=== PATIENT | male | born 1990 ===

== ENCOUNTER 2024-08-14 17:34 | Emergency (ER) | payer OTHER ==
[~2024-08-14] VITALS: Ht 193 cm; Wt 110.5 kg
[2024-08-14 19:21] VITALS: TEMP 98
[2024-08-14 19:58] LABS: APPEARANCE,URINE CLEAR (CLEAR); BILIRUBIN,URINE NEGATIVE (NEGATIVE); COLOR,URINE LIGHT YELLOW (YELLOW); GLUCOSE, URINE (UA) NEGATIVE (NEGATIVE); KETONES,URINE NEGATIVE (NEGATIVE); LEUKOCYTE ESTERASE ,URINE NEGATIVE (NEGATIVE); NITRATE,URINE NEGATIVE (NEGATIVE); OCCULT BLOOD,URINE NEGATIVE (NEGATIVE); PROTEIN,URINE NEGATIVE (NEGATIVE); SPECIFIC GRAVITIY, URINE 1.014 (1.003-1.030); UROBILINOGEN,URINE <=1.0 mg/dL (<=1.0)
[2024-08-14 20:06] LABS: BACTERIA,URINE None Seen /HPF (None Seen); RBC,URINE 0-2 /HPF (0-2); SQUAMOUS EPITHELIAL CELL,UR Rare /LPF (None Seen); WBC,URINE 0-2 /HPF (0-5)
[2024-08-14 20:07] LABS: ALCOHOL, URINE DRUG SCREEN NEGATIVE (NEGATIVE); AMPHET/METH SCREEN,URINE NEGATIVE (NEGATIVE); BARBITURATE SCREEN, URINE NEGATIVE (NEGATIVE); BENZODIAZEPINES SCREEN,URINE NEGATIVE (NEGATIVE); CANNABINOID SCREEN,URINE NEGATIVE (NEGATIVE); COCAINE SCREEN,URINE NEGATIVE (NEGATIVE); METHADONE SCREEN, URINE NEGATIVE (NEGATIVE); OPIATE SCREEN,URINE NEGATIVE (NEGATIVE); PHENCYCLIDINE SCREEN,URINE NEGATIVE (NEGATIVE)
[2024-08-14] MEDS: IBUPROFEN 600 MG TABLET PO ONE (21:48)
[2024-08-14] MEDS: CEPHALEXIN MONOHYDRATE 500 MG CAPSULE PO ONE (21:48)
[2024-08-14] MEDS: DOXYCYCLINE HYCLATE 100 MG TABLET PO ONE (21:48)
[2024-08-14 22:18] VITALS: BP 134/80; PULSE 65; RESP 18; O2SAT 98
== END 2024-08-14 22:26 | disposition home or self-care (01) ==
LOC: EMS 17:34
DX: N49.2 Inflammatory disorders of scrotum (principal)
CPT/HCPCS: 54700; 80307; 81001; 99284